=== PATIENT | male | born 1990 | race Caucasian/White ===

== ENCOUNTER 2016-08-14 16:22 | Emergency (ER) | payer OTHER ==
[~2016-08-14] VITALS: Ht 180.3 cm; Wt 61.1 kg
[~2016-08-14 16:22] MED LIST: ACET-1256 PO
[2016-08-14 16:32] VITALS: TEMP 37.4; Ht 180.3 cm; Wt 61.1 kg
--- NOTE | 2016-08-14 17:22 | DIAGNOSTIC IMAGING REPORT ---
PA CHEST WITH LEFT-SIDED RIB SERIES CLINICAL HISTORY: Left-sided chest wall pain. Fall several days ago. FINDINGS: A PA chest radiograph with 4 additional views may left-sided rib series is compared to study dated 05/31/2015. The cardiomediastinal silhouette is unremarkable. The lungs and pleural spaces are clear. No pneumothorax is seen. There is no radiographic evidence of left-sided rib fracture on the rib series. The remainder of the bony thorax is grossly intact. IMPRESSION: 1. No active disease in the chest. 2. There is no radiographic evidence of left-sided rib fracture as clinically queried. Electronically signed by: Tim Zambrano M.D. 08/14/2016 5:21 PM Dictated Date/Time: 08/14/2016 5:20 PM
[2016-08-14] MEDS ORDERED: HYDR-5688 PO (17:36)
--- NOTE | 2016-08-14 17:37 | EMERGENCY ROOM VISIT NOTE ---
ED Visit Note First contact with patient: 16:33 CHIEF COMPLAINT: Left rib injury 5 days ago HISTORY OF PRESENT ILLNESS: Patient is a 26-year-old white male who presents to emergency department for evaluation of left rib pain after a fall 4-5 days ago. He was walking backwards, pulling some brush, when he tripped over a cinder block and fell, landing on his right ribs on another cinder block. He has noted pain in the lateral right ribs since the injury. It was tolerable initially and alleviated with Tylenol, but over the last 2 or 3 days it has gotten much worse. He presently rates his pain an 8/10. He denies noticing any swelling or bruising to the area. He denies any cough or shortness of breath, but does note increased pain with deep breathing, coughing, sneezing or position changes. He denies any back pain, no dysuria, frequency, urgency or hematuria. He denies any abdominal pain, nausea or vomiting. REVIEW OF SYSTEMS: Review of systems as per HPI. All other systems reviewed were negative. At least 6 systems reviewed. PMH: Electronic medical records are reviewed and summarized as above/below. See Problem List. SOCIAL HISTORY: Patient lives at home. Nonsmoker. PHYSICAL EXAM: Vital Signs: Reviewed Nurse's notes. GENERAL: Patient is a thin, well-appearing 26-year-old white male who is awake and alert and in no acute distress. HEENT: Head - normocephalic and atraumatic. Pupils are equal, round, and reactive to light. Extraocular eye muscles are intact and sclera are anicteric. Ears - bilaterally patent canals with no evidence of hemotympanum. Nose - moist nasal mucosa without evidence of trauma or discharge. Mouth - moist buccal mucosa with no trauma to the teeth or signs of malocclusion. Neck: The neck is supple and there is no pain to palpation over the posterior cervical spine and no obvious step-offs or deformities. There is no JVD or tracheal deviation. Chest: There are no signs of deformities, contusions or abrasions to the chest wall. There is no obvious crepitus or paradoxical chest rise. The patient has tenderness to palpation over the inferior left left ribs, in the anterior axillary line. No flail segment is appreciated. Heart: Regular rate, and regular rhythm. Lungs: Breath sounds equal and clear to auscultation. Abdomen: Soft, completely nontender, nondistended, with good bowel sounds. There is no sign of trauma such as contusions, abrasions or penetrations. There are no palpable pulsatile masses or hepatosplenomegaly. There is no guarding, rigidity, or rebound noted. EMERGENCY DEPARTMENT COURSE: Patient was offered, but declined analgesia. X- rays of the ribs were obtained and were negative for acute fracture or pneumothorax. Differential diagnoses entertained include rib fracture, rib contusion, pneumothorax, pulmonary contusion, retroperitoneal bleed, splenic injury, among others. The patient has isolated pain over the inferior ribs. He does not have any abdominal pain. I do not suspect solid organ injury. Supportive care measures were discussed. Patient was encouraged to continue the [id number] medications and was given a prescription for [place] to use for severe pain. PA CHEST WITH LEFT-SIDED RIB SERIES CLINICAL HISTORY: Left-sided chest wall pain. Fall several days ago. FINDINGS: A PA chest radiograph with 4 additional views may left-sided rib series is compared to study dated 05/31/2015. The cardiomediastinal silhouette is unremarkable. The lungs and pleural spaces are clear. No pneumothorax is seen. There is no radiographic evidence of left-sided rib fracture on the rib series. The remainder of the bony thorax is grossly intact. IMPRESSION: 1. No active disease in the chest. 2. There is no radiographic evidence of left-sided rib fracture as clinically queried. Patient was reviewed in the [facility] Prescription Drug Monitoring Program, and there were no prescriptions for controlled substances in the last 12 months. Problem List Medical Problems: (1) Crohn's disease Status: Chronic (2) Hand contusion Status: Resolved (3) Injury of left hand Status: Resolved (4) Numbness of right hand Status: Resolved (5) Right foot pain Status: Resolved (6) Right shoulder pain Status: Resolved (7) Upper back pain Status: Resolved (8) Work related injury Status: Resolved (9) Work related injury Status: Resolved Surgical Problems: (1) History of orthopedic surgery Status: Resolved Current/Historical Medications Scheduled PRN Acetaminophen (Tylenol), 1,000 MG PO Q6 PRN for Pain Hydrocodone/Acetaminophen 5MG/325MG ([place] 5MG/325MG), 1-2 TABLETS PO Q4 PRN for Pain Allergies Coded Allergies: Tramadol (Verified Allergy, Severe, Possible seizure, 05/23/15) Penicillins (Verified Allergy, Intermediate, RASH, 05/23/15) Vital Signs Date Time Temp Pulse Resp B/P Pulse Ox O2 Delivery O2 Flow Rate FiO2 08/14/16 17:50 89 18 128/79 99 08/14/16 16:32 37.4 109 16 131/77 99 Room Air Departure Information Impression Primary Impression: Rib injury Prescriptions Hydrocodone/Acetaminophen 5MG/325MG ([place] 5MG/325MG) Tab 1-2 TABLETS PO Q4 Y for Pain, #25 TAB For Initial Treatment Prov: Yaneth Holley PA 08/14/16 Referrals No Doctor, Assigned (PCP) Patient Instructions My [facility] Additional Instructions Hydrocodone/Acetaminophen ([place]) 5/325 mg: Take 1-2 pills every four hours for breakthrough pain. Avoid alcohol, operating machinery or dangerous equipment, working on ladders or roofs, DRIVING, or situations where being under the influence may be dangerous. It is recommended to use an pqmd-zyg-wsovrft stool softener such as Colace, 100mg twice daily while taking this medication to avoid constipation. Ibuprofen(Motrin, Advil) may be used for fever or pain. Use 600mg every six hours as needed. Take with food. Avoid using more than 2400mg in a 24 hour period. Do not use 2400mg per day for more than three consecutive days without physician direction. Prolonged inappropriate use can lead to stomach upset or ulcers. (AND/OR) Acetaminophen(Tylenol) may be used for fever or pain. Use 1000mg every six hours as needed. Avoid using more than 3000mg in a 24 hour period. Apply ice to ribs for swelling and pain. Do deep breathing and coughing exercises as instructed. Limit activities until ribs heal. Return to the emergency department for worsening pain, shortness of breath, fevers, vomiting, worsening symptoms or as needed. Follow-up family doctor as needed.
[2016-08-14 17:50] VITALS: BP 128/79; PULSE 89; O2SAT 99
== END 2016-08-14 18:09 | disposition home or self-care (01) ==
LOC: C.EDB 16:24
DX: R07.89 Other chest pain (principal); W19.XXXA Unspecified fall, initial encounter; K50.90 Crohn's disease, unspecified, without complications

== ENCOUNTER 2017-04-14 14:16 | Emergency (ER) | payer OTHER ==
[~2017-04-14] VITALS: Ht 180.3 cm; Wt 66.1 kg
[2017-04-14 14:22] VITALS: BP 141/91; TEMP 36.9; Ht 180.3 cm; Wt 66.1 kg
--- NOTE | 2017-04-14 15:12 | DIAGNOSTIC IMAGING REPORT ---
MANDIBLE MIN 4 VIEWS ROUTINE CLINICAL HISTORY: RIGHT TMJ PAIN pain COMPARISON STUDY: None FINDINGS: No acute bony abnormality. Alignment is considered anatomic. IMPRESSION: No acute process. If The patient remains symptomatic, an MRI of the TMJs may be of further assistance. The above report was generated using voice recognition software. It may contain grammatical, syntax or spelling errors. Electronically signed by: Cam Post M.D. 04/14/2017 3:11 PM Dictated Date/Time: 04/14/2017 3:09 PM
[2017-04-14] MEDS ORDERED: HYDR-5688 PO (15:36)
--- NOTE | 2017-04-14 15:37 | EMERGENCY ROOM VISIT NOTE ---
ED Visit Note First contact with patient: 14:31 CHIEF COMPLAINT: Right jaw pain 2 weeks HISTORY OF PRESENT ILLNESS: Patient is a 27-year-old male who presents the emergency department for evaluation of right jaw pain. He has pain at the right TMJ for 2 weeks. He states that the pain was dull initially, and was manageable with swzw-cto-teovhft medications including only dose of Tylenol. About a week ago, he states that he yawned and open his mouth very widely and he felt a snap in his right TMJ, after that the pain became much worse. He has pain when he bites down or when he chews. He has switched to a soft diet. He has not been previously evaluated for this. He reports there left mandible fracture in the past that was treated conservatively. He feels that he bites down, his "teeth do not line up normally." There is no recent trauma or injury that would lean his pain. He states that he has a mild right-sided headache from the jaw pain. He rates his discomfort a 9/10. bite of the teeth does not feel off. REVIEW OF SYSTEMS: Review of systems as per HPI. All other systems reviewed were negative. At least 6 systems reviewed. PMH: Electronic medical records are reviewed and summarized as above/below. See Problem List. SOCIAL HISTORY: Patient lives at home, with his family. Nonsmoker. PHYSICAL EXAM: Vital Signs: Reviewed Nurse's notes. CONSTITUTIONAL: Patient is a well-appearing 27-year-old white male who is awake and alert and in no acute distress. HEENT: Normocephalic, atraumatic. Pupils equal, round, reactive to light and accommodation. EOMs intact without nystagmus. Sclera are anicteric. Tympanic membranes intact, with normal landmarks. External canals are clear. Oral and nasopharynx are clear. Mucous membranes are moist. The patient has tenderness to palpation over the right TMJ. He is able to open the mouth almost fully. There is no malalignment. He does have a click at the right TMJ with range of motion. EMERGENCY DEPARTMENT COURSE: The patient was seen and evaluated as above. He was interested in x-rays, which were performed and were unremarkable. His does persist however he may need more advanced imaging such as an MRI. He was encouraged to continue the anti-inflammatory medicine, and was given a small prescription for [place] to use at night for severe pain. He was advised to follow-up with his primary care provider, as he may need a referral to a maxillofacial surgeon if his eyes are not improving. Medication reconciliation: I attest that I have personally reviewed the patient' s current medication list. Blood pressure screening: Patient was found to have a slightly elevated blood pressure due to circumstances. I do not believe that the patient requires hypertension monitoring. Patient was reviewed in the [facility] Prescription Drug Monitoring Program, and there were no red flags noted. MANDIBLE MIN 4 VIEWS ROUTINE CLINICAL HISTORY: RIGHT TMJ PAIN pain COMPARISON STUDY: None FINDINGS: No acute bony abnormality. Alignment is considered anatomic. IMPRESSION: No acute process. If The patient remains symptomatic, an MRI of the TMJs may be of further assistance. Problem List Medical Problems: (1) Crohn's disease Status: Chronic (2) Hand contusion Status: Resolved (3) Injury of left hand Status: Resolved (4) Numbness of right hand Status: Resolved (5) Rib injury Status: Resolved (6) Right foot pain Status: Resolved (7) Right shoulder pain Status: Resolved (8) Upper back pain Status: Resolved (9) Work related injury Status: Resolved (10) Work related injury Status: Resolved Surgical Problems: (1) History of orthopedic surgery Status: Resolved Current/Historical Medications Scheduled PRN Acetaminophen (Tylenol), 1,000 MG PO Q6H PRN for Pain Hydrocodone/Acetaminophen 5MG/325MG ([place] 5MG/325MG), 1-2 TABLETS PO Q4 PRN for Pain Allergies Coded Allergies: Tramadol (Verified Allergy, Severe, Possible seizure, 05/23/15) Penicillins (Verified Allergy, Intermediate, RASH, 05/23/15) Vital Signs Date Time Temp Pulse Resp B/P (MAP) Pulse Ox O2 Delivery O2 Flow Rate FiO2 04/14/17 15:52 84 16 97 04/14/17 14:22 36.9 97 18 141/91 100 Room Air Departure Information Impression Primary Impression: Temporomandibular joint pain Prescriptions Hydrocodone/Acetaminophen 5MG/325MG ([place] 5MG/325MG) Tab 1-2 TABLETS PO Q4 Y for Pain, #20 TAB For Initial Treatment Prov: Yaneth Holley PA 04/14/17 Referrals Pascual Bazzi M.D. (PCP) Patient Instructions My [facility] Additional Instructions Ibuprofen(Motrin, Advil) may be used for fever or pain. Use 600mg every six hours as needed. Take with food. Avoid using more than 2400mg in a 24 hour period. Do not use 2400mg per day for more than three consecutive days without physician direction. Prolonged inappropriate use can lead to stomach upset or ulcers. (AND/OR) Acetaminophen(Tylenol) may be used for fever or pain. Use 1000mg every six hours as needed. Avoid using more than 4000mg in a 24 hour period. Hydrocodone/Acetaminophen ([place]) 5/325 mg: Take 1-2 pills every four hours for breakthrough pain. Avoid alcohol, operating machinery or dangerous equipment, working on ladders or roofs, DRIVING, or situations where being under the influence may be dangerous. It is recommended to use an qdza-rko-icrpqoj stool softener such as Colace, 100mg twice daily while taking this medication to avoid constipation. Soft foods. Follow-up with your primary care physician if symptoms are not improving. Problem Qualifiers Primary Impression: Temporomandibular joint pain Laterality: right Qualified Codes: M26.621 - Arthralgia of right temporomandibular joint
[2017-04-14 15:52] VITALS: PULSE 84; O2SAT 97
== END 2017-04-14 15:52 | disposition home or self-care (01) ==
LOC: C.EDB 14:18 → C.EDD 15:52
DX: M26.621 Arthralgia of right temporomandibular joint (principal); K50.90 Crohn's disease, unspecified, without complications

== ENCOUNTER 2019-05-09 13:15 | Inpatient (IN) ==
[2019-05-09] MEDS ORDERED: ONDANSETRON INJ 2 MG/ML 2 ML VIAL IV STA ×2 (13:29→14:31)
[2019-05-09] MEDS ORDERED: SODIUM CHLORIDE 0.9% 250 ML IV PRN (13:29)
[2019-05-09] MEDS ORDERED: SODIUM CHLORIDE 0.9% 1000ML 1,000 ML IV SCH (13:30)
--- NOTE | 2019-05-09 13:43 | Emergency Department Note ---
Entered by Valorie Ceja acting as a scribe for Onur Rey MD History of Present Illness General Chief complaint: Vomiting Stated complaint: VOMITING BLOOD Time Seen by Provider: 05/09/19 13:24 Source: patient Mode of arrival: ambulatory Limitations: no limitations History of Present Illness Provider complaint: Vomiting of blood Onset (ago): day(s) 1 Location: abdomen Radiation: non-radiation Severity: moderate Maximum Pain Intensity: 10 Relieved By: + none Exacerbated By: + eating Associated symptoms: + other (Abdominal pain, hematochezia); no fever/chills Treatments prior to arrival: none This is a 29-year-old male with Crohn's disease presenting with hematemesis. He started vomiting 3 days ago. Last night he started seeing coffee grounds and bright red blood. He also noticed bright red blood from his rectum yesterday. He had a normal bowel movement 2 days ago without melena. He does complain of a diffuse abdominal pain. He does have a history of Crohn's but states that he has been in remission and is not on any medications. Previously he was on Remicade. His pain is dissimilar to his prior Crohn's exacerbations and states it feels somewhat different. He does drink alcohol occasionally. He states he is not a heavy drinker. He has been urinating. He denies any fever. He does feel very lightheaded and weak but he did not pass out. He did have chills. He denies any cold symptoms although stated that he had a cold about 2 weeks ago which has since resolved. Home Medications Home Medications Medication Instructions Recorded Confirmed Type No Known Home Medications 05/09/19 05/09/19 History Allergies Allergy/AdvReac Type Severity Reaction Status Date / Time tramadol Allergy Severe Possible Verified 05/09/19 13:49 seizure Penicillins Allergy Intermediate RASH Verified 05/09/19 13:49 Past Med/Surg History Medical History Crohn's disease Surgical History History of shoulder surgery Status post wrist surgery Family History Other No pertinent family history in first degree relatives Social History Preferred Language: Urdu Communication Ability: Effective Hydrochloric Manufacturing Supervisor Required: No Beliefs That Will Affect Care: None Current Living Situation: Other Current Living Situation Comment: [facility] Other Information That Helps Us Care for You: No Feels Safe at Home: Yes Safety Concerns: Feels Safe At This Time Smoking Status: Never smoker Hx Alcohol Use: Yes Alcohol type: beer Hx Substance Use: No Review of Systems See HPI for pertinent positives & negatives. and A total of 10 systems reviewed and were otherwise negative Physical Exam Vital Signs Vital Signs - 24 hr 05/09/19 13:21 05/09/19 13:47 05/09/19 14:03 Temperature 36.9 C Temperature Source Oral Pulse Rate 139 H 115 H Respiratory Rate 20 17 Blood Pressure 84/71 L Blood Pressure Mean 75 Blood Pressure Position Sitting Pulse Oximetry 97 Oxygen Delivery Method Room Air Room Air Sepsis Recent Fever Within 48 Hours No Sepsis New/Unexplained Change in Mental Status No Sepsis Action Taken by Nursing No Action Required 05/09/19 14:13 05/09/19 14:14 05/09/19 14:16 Temperature Temperature Source Pulse Rate 118 H 112 H 107 H Respiratory Rate 20 23 12 Blood Pressure 110/70 Blood Pressure Mean 94 Blood Pressure Position Pulse Oximetry Oxygen Delivery Method Sepsis Recent Fever Within 48 Hours Sepsis New/Unexplained Change in Mental Status Sepsis Action Taken by Nursing 05/09/19 14:30 05/09/19 14:31 05/09/19 14:45 Temperature Temperature Source Pulse Rate 117 H 122 H 110 H Respiratory Rate 19 25 H 21 Blood Pressure 117/90 Blood Pressure Mean 102 Blood Pressure Position Pulse Oximetry Oxygen Delivery Method Sepsis Recent Fever Within 48 Hours Sepsis New/Unexplained Change in Mental Status Sepsis Action Taken by Nursing Constitutional: Vital signs reviewed. Eyes: Pupils are equal round reactive to light. Conjunctiva are noninjected. ENT: Pharynx is clear without erythema or exudate. Mucous membranes are moist. Neck supple without meningeal signs. Respiratory: Clear to auscultation bilaterally. Breath sounds are equal bilaterally. Cardiovascular: Tachycardic. Normal rhythm. No rubs or gallops. GI: Soft, nondistended with diffuse tenderness without rebound. Bowel sounds are present. Musculoskeletal: No peripheral edema. No lower extremity tenderness. Integumentary: No cyanosis. Very pale. Neurological: The patient is awake and alert. No focal deficits. Psychiatric: Normal affect. Not anxious appearing. Course Course 1339: The patient was evaluated in room B3B. A complete history and physical exam was performed. 1357: I reevaluated the patient and he is going to CT. His hemoglobin is 11.9. 1411: I reevaluated the patient and his heart rate is 117. His blood pressure is 110/70. He is feeling better. 1432: I reevaluated the patient and he vomited some more brown material. I ordered more Zofran. I sent it for gastroccult for blood. 1438: I reevaluated the patient and updated him on his test results thus far. 1448: I discussed the patient's case with Dr. Tang. He recommends admitting the patient and he will be on consult. 1453: I reevaluated the patient and updated him on his test results. I discussed the treatment plan with him. He verbally agrees and understands. 1456: I discussed the patient's case with Dr. Garcia- [facility] Hospitalist. He will evaluate the patient for further management. 1537: I reevaluated the patient and his vital signs are stable. He is still tachycardic. Dr. Garcia is interviewing the patient. I requested the nurse to draw a second H&H. Administered Medications Pantoprazole Sodium 40 mg/ (Dextrose) 100 mls @ 20 mls/hr IV Q5H [facility] Stop: 05/09/19 18:59 Last Admin: 05/09/19 13:56 Dose: 20 mls/hr Documented by: [id number] Ondansetron HCl (Zofran) 4 mg IV Q6H PRN PRN Reason: Nausea Stop: 06/08/19 16:25 Last Admin: 05/09/19 17:02 Dose: 4 mg Documented by: [id number] Discontinued Medications Acetaminophen (Tylenol) Confirm Administered Dose 650 mg .ROUTE .STK-MED ONE Stop: 05/09/19 16:29 Last Admin: 05/09/19 16:45 Dose: 650 mg Documented by: [id number] Sodium Chloride (Nss 1000ml) 1,000 mls @ 999 mls/hr IV .Q1H1M SANDY Stop: 05/09/19 14:30 Last Infusion: 05/09/19 17:28 Dose: 0 mls/hr Documented by: [id number] Admin: 05/09/19 13:40 Dose: 999 mls/hr Documented by: [id number] Pantoprazole Sodium 80 mg/ (Dextrose) 120 mls @ 480 mls/hr IV NOW ONE Stop: 05/09/19 13:59 Last Infusion: 05/09/19 14:18 Dose: 0 mls/hr Documented by: [id number] Admin: 05/09/19 13:55 Dose: 480 mls/hr Documented by: [id number] Ondansetron HCl (Zofran) 4 mg IV NOW STA Stop: 05/09/19 13:30 Last Admin: 05/09/19 13:40 Dose: 4 mg Documented by: [id number] Ondansetron HCl (Zofran) 4 mg IV NOW STA Stop: 05/09/19 14:32 Last Admin: 05/09/19 14:40 Dose: 4 mg Documented by: [id number] Critical Care Time Critical Care Time: Yes Total Critical Care Time: 40 I have personally spent 40 minutes of critical care time in the direct management of this patient. This includes bedside care, interpretation of diagnostic studies, and testing, discussion with consultants, patient, and family members, and other required patient management activities. This 40 minutes is in excess of all separately billable procedures. Medical Decision Making Differential Diagnosis Differential diagnoses include upper GI bleed, peptic ulcer disease, bowel perforation, anemia, crohn's disease exacerbation. Medical Records Attestation: I reviewed the patient's medical records. I did perform a limited focused review of portions of the patient's old chart on the electronic medical record. The patient has had no recent pertinent visits to this hospital. Home Medications Current Medication List: was personally reviewed by me Laboratory Data Attestation: I reviewed the patient's lab results. Result diagrams: 05/09/19 15:41 05/09/19 13:33 Lab Results 05/09/19 05/09/19 05/09/19 Range/Units 13:33 13:33 13:33 WBC 29.09 H (4.8-10.8) K/uL RBC 3.74 L (4.7-6.1) M/uL Hgb 11.9 L (14.0-18.0) g/dL Hct 35.9 L (42-52) % MCV 96.0 (80-100) fL MCH 31.8 (25-34) pg MCHC 33.1 (32-36) g/dL RDW Std Deviation 45.4 (36.4-46.3) fL RDW Coeff of Pavan 13.0 (11.5-14.5) % Plt Count 482 H (130-400) K/uL MPV 10.9 H (7.4-10.4) fL Immature Gran % (Auto) 0.4 % Neut % (Auto) 88.5 % Lymph % (Auto) 6.5 % [place] % (Auto) 4.2 % Eos % (Auto) 0.3 % Baso % (Auto) 0.1 % Immature Gran # (Auto) 0.12 H (0.00-0.02) K/uL Neut # (Auto) 25.75 H (1.4-6.5) K/uL Lymph # (Auto) 1.89 (1.2-3.4) K/uL [place] # (Auto) 1.22 H (0.11-0.59) K/uL Eos # (Auto) 0.08 (0-0.5) K/uL Baso # (Auto) 0.03 (0-0.2) K/uL Sodium 138 (136-145) mmol/L Potassium 4.1 (3.5-5.1) mmol/L Chloride 105 (98-107) mmol/L Carbon Dioxide 22 (21-32) mmol/L Anion Gap 11.0 (3-11) BUN 48 H (7-18) mg/dl Creatinine 1.19 (0.6-1.4) mg/dl Est Cr Clr Drug Dosing 79.8 ml/min Est GFR ( Amer) 93.8 Est GFR (Non-Af Amer) 80.9 BUN/Creatinine Ratio 40.1 H (10-20) Glucose 219 H (70-99) mg/dl Estimat Average Glucose mg/dl Hemoglobin A1c (4.5-5.6) % Calcium 9.0 (8.5-10.1) mg/dl Total Bilirubin 1.0 (0.2-1) mg/dl AST 6 L (15-37) U/L ALT 15 (12-78) U/L Alkaline Phosphatase 52 (45-117) U/L Total Protein 7.0 (6.4-8.2) gm/dl Albumin 3.8 (3.4-5.0) gm/dl Globulin 3.2 (2.5-4.0) gm/dl Albumin/Globulin Ratio 1.2 (0.9-2) Lipase 44 L (73-393) U/L Gastric Fluid pH Gastric Occult Blood (Negative) Influenza Type A (PCR) (Neg) Influenza Type B (PCR) (Neg) Blood Type A Positive Antibody Screen NEGATIVE Crossmatch See Detail 05/09/19 05/09/19 05/09/19 Range/Units 13:33 14:18 14:37 WBC (4.8-10.8) K/uL RBC (4.7-6.1) M/uL Hgb (14.0-18.0) g/dL Hct (42-52) % MCV (80-100) fL MCH (25-34) pg MCHC (32-36) g/dL RDW Std Deviation (36.4-46.3) fL RDW Coeff of Pavan (11.5-14.5) % Plt Count (130-400) K/uL MPV (7.4-10.4) fL Immature Gran % (Auto) % Neut % (Auto) % Lymph % (Auto) % [place] % (Auto) % Eos % (Auto) % Baso % (Auto) % Immature Gran # (Auto) (0.00-0.02) K/uL Neut # (Auto) (1.4-6.5) K/uL Lymph # (Auto) (1.2-3.4) K/uL [place] # (Auto) (0.11-0.59) K/uL Eos # (Auto) (0-0.5) K/uL Baso # (Auto) (0-0.2) K/uL Sodium (136-145) mmol/L Potassium (3.5-5.1) mmol/L Chloride (98-107) mmol/L Carbon Dioxide (21-32) mmol/L Anion Gap (3-11) BUN (7-18) mg/dl Creatinine (0.6-1.4) mg/dl Est Cr Clr Drug Dosing ml/min Est GFR ( Amer) Est GFR (Non-Af Amer) BUN/Creatinine Ratio (10-20) Glucose (70-99) mg/dl Estimat Average Glucose 97 mg/dl Hemoglobin A1c 5.0 (4.5-5.6) % Calcium (8.5-10.1) mg/dl Total Bilirubin (0.2-1) mg/dl AST (15-37) U/L ALT (12-78) U/L Alkaline Phosphatase (45-117) U/L Total Protein (6.4-8.2) gm/dl Albumin (3.4-5.0) gm/dl Globulin (2.5-4.0) gm/dl Albumin/Globulin Ratio (0.9-2) Lipase (73-393) U/L Gastric Fluid pH 5-7 Gastric Occult Blood Positive A (Negative) Influenza Type A (PCR) Neg for Influ A (Neg) Influenza Type B (PCR) Neg for Influ B (Neg) Blood Type Antibody Screen Crossmatch Imaging Data Radiologist's Impression: Radiology results as stated below per my review and the radiologist's interpretation: CT abd pelvis wo con CLINICAL HISTORY: 29 years-old Male presenting with hematemasis/crohns eval for free air, vomiting for 3 days. TECHNIQUE: Multidetector CT of the abdomen and pelvis was performed without the use of intravenous contrast. IV contrast: None. One or more dose lowering techniques were used consistent with the principles of ALARA (as low as reasona shell achievable), including automatic exposure control, mA or kV adjustment to individual patient size, and/or use of iterative reconstruction. COMPARISON: 07/16/2007. CT DOSE (mGy.cm): The estimated cumulative dose is 452.07 mGycm. FINDINGS: Property Site Manager topogram: Unremarkable. Lung bases: Normal heart size. No pericardial or pleural effusion. No focal infiltrate or nodule at the lung bases. Liver: Normal morphology. Normal density. Biliary: No gross biliary ductal dilatation allowing for noncontrast technique. Normal gallbladder. Pancreas: Normal noncontrast appearance. Spleen: Normal noncontrast appearance. Adrenal glands: Normal noncontrast appearance. Kidneys and ureters: Bilateral nonobstructing nephrolithiasis, the largest calculus on the left measuring 5 mm. Otherwise normal noncontrast appearance of the renal parenchyma. No hydronephrosis. Ureters nondistended. Bladder: Circumferential bladder wall thickening. Pelvic organs: Normal noncontrast appearance. Bowel: Intramural fat deposition noted throughout the colon largely sparing the sigmoid and rectum. No pericolonic inflammatory change. The appendix is normal. No bowel obstruction. Peritoneal cavity: No free fluid or intraperitoneal gas. Lymph nodes: No gross lymphadenopathy allowing for noncontrast technique. Vasculature: Normal noncontrast appearance. Abdominal wall: Small fat-containing umbilical hernia. Musculoskeletal: Normal. IMPRESSION: 1. Bladder wall thickening may be due to underdistention or cystitis. Correlate with urinalysis. 2. Intramural fat deposition throughout the majority of the colon likely relates to chronic inflammation and setting of Crohn's colitis. No current evidence to suggest active disease in the small or large bowel. 3. No pneumoperitoneum. ACT 112: Negative or not required by law. Electronically signed by: Bobby Pedersen M.D. 05/09/2019 2:18 PM Blood Pressure Blood Pressure Findings: Low blood pressure Blood Pressure Disposition: further management by hospitalist ROLA Boyle The patient was brought by wheelchair to room B3. I did immediately evaluate the patient as noted above. IV access was established. The patient was placed on a continuous electronic device monitor. He is hypotensive and tachycardic. Cardiac monitoring: Indication: Tachycardia and hypotension in setting of GI bleed Rate and rhythm: Sinus tachycardia and normal sinus rhythm I did treat the patient with a liter normal saline IV as the patient is hypot ensive and tachycardic. He was also started on a Protonix drip with a bolus because of presumed GI bleed with a history of hematemesis and hematochezia. I also treated him with Zofran IV. A type and cross was obtained as well as informed consent for blood transfusion should it become necessary. I did order and review the patient's blood work as noted in the electronic medical record. Hemoglobin is 11.9. His white count is severely elevated at 29,000. Electrolytes, LFTs and lipase are unremarkable. I did order a stat CT of the abdomen and pelvis. I did review the images myself as well as the radiology report as described above. There is no evidence of visceral rupture or free air. He has chronic changes consistent with Crohn's disease without signs of acute exacerbation. I did reassess the patient. He is feeling much better. His blood pressure is improved and he is less tachycardic. I did discuss the test results with him. I did recommend hospitalization. He did throw up again. It appeared to be coffee grounds. He was sent to the lab for gastric occult testing it which was positive. He was given additional Zofran IV. I did discuss the case with Dr. Rothman of gastroenterology. He agreed with my management at this time and plan for admission. He will see him in the hospital. I did discuss the case with the hospitalist and transplant case manager. A repeat hemoglobin was obtained and this was 10.7. Part of this drop may be secondary to hemodilution. There is not currently an indication for emergent transfusion at this time. He will continue to be closely monitored. Impression & Plan Upper gastrointestinal bleed, Symptomatic anemia, Abdominal pain, generalized, Hematemesis, Crohn's disease Discharge Plan Visit Data *Final* Discharge Date/Time: 05/09/19 15:50 Chief Complaint: Vomiting Stated Complaint: VOMITING BLOOD ED Provider: Onur Rey Discharge Problem: Upper gastrointestinal bleed, Symptomatic anemia, Abdominal pain, generalized, Hematemesis, Crohn's disease Patient Disposition: Being Evaluated by Hospitalist Discharge Instructions Interventions: ED Discharge Assessment Last Done: 05/09/19 15:50 Discharge Problem: Hematemesis Qualifiers: Nausea presence: unspecified Qualified Code(s): K92.0 - Hematemesis Crohn's disease Qualifiers: Gastrointestinal tract location: unspecified location Digestive disease complication type: unspecified complication Qualified Code(s): K50.919 - Crohn's disease, unspecified, with unspecified complications The sharifiblivia's documentation has been prepared under my direction and personally reviewed by me in its entirety. I confirm that the note above accurately reflects all work, treatment, procedures, and medical decision making performed by me.
[2019-05-09] MEDS ORDERED: PANTOprazole 80 MG in DEXTROSE 5% 100 ML IV ONE (13:45)
[2019-05-09 13:47] LABS: Hematocrit (blood only) 35.9 % (42-52); Hemoglobin 11.9 g/dL (14.0-18.0); Mean Corpuscular Hemoglobin 31.8 pg (25-34); Mean Corpuscular Hgb Conc 33.1 g/dL (32-36); Mean Platelet Volume 10.9 fL (7.4-10.4); Platelet Count 482 K/uL (130-400); RDW Standard Deviation 45.4 fL (36.4-46.3); Red Blood Count 3.74 M/uL (4.7-6.1); White Blood Count 29.09 K/uL (4.8-10.8)
[2019-05-09] MEDS ORDERED: PANTOprazole 40 MG in DEXTROSE 5% 100 ML IV SCH (14:00)
[2019-05-09 14:05] LABS: Albumin Level 3.8 gm/dl (3.4-5.0); BUN Creatinine Ratio 40.1 (10-20); Creatinine Clr Calc Pharmacy 79.8 ml/min; Est GFR (African American) 93.8; Est GFR (Non-African American) 80.9; Potassium 4.1 mmol/L (3.5-5.1)
[2019-05-09 14:07] LABS: Albumin Globulin Ratio 1.2 (0.9-2); Globulin 3.2 gm/dl (2.5-4.0)
[2019-05-09 14:09] LABS: Basophils # (auto) 0.03 K/uL (0-0.2); Basophils % (auto) 0.1 %; Eosinophils # (auto) 0.08 K/uL (0-0.5); Eosinophils % (auto) 0.3 %; Immature Granulocytes # (auto) 0.12 K/uL (0.00-0.02); Immature Granulocytes % (auto) 0.4 %; Lymphocytes # (auto) 1.89 K/uL (1.2-3.4); Lymphocytes % (auto) 6.5 %; Monocytes # (auto) 1.22 K/uL (0.11-0.59); Monocytes % (auto) 4.2 %; Neutrophils # (auto) 25.75 K/uL (1.4-6.5); Neutrophils % (auto) 88.5 %
--- NOTE | 2019-05-09 14:19 | CT Scan Report ---
CT abd pelvis wo con CLINICAL HISTORY: 29 years-old Male presenting with hematemasis/crohns eval for free air, vomiting fo r 3 days. TECHNIQUE: Multidetector CT of the abdomen and pelvis was performed without the use of intravenous co ntrast. IV contrast: None. One or more dose lowering techniques were used consistent with the princip les of ALARA (as low as reasonably achievable), including automatic exposure control, mA or kV adjust ment to individual patient size, and/or use of iterative reconstruction. COMPARISON: 07/16/2007. CT DOSE (mGy.cm): The estimated cumulative dose is 452.07 mGycm. 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 Lung bases: Normal heart size. No pericardial or pleural effusion. No focal infiltrate or nodule at t he lung bases. Liver: Normal morphology. Normal density. Biliary: No gross biliary ductal dilatation allowing for noncontrast technique. Normal gallbladder. Pancreas: Normal noncontrast appearance. Spleen: Normal noncontrast appearance. Adrenal glands: Normal noncontrast appearance. Kidneys and ureters: Bilateral nonobstructing nephrolithiasis, the largest calculus on the left measu ring 5 mm. Otherwise normal noncontrast appearance of the renal parenchyma. No hydronephrosis. Ureter s nondistended. Bladder: Circumferential bladder wall thickening. Pelvic organs: Normal noncontrast appearance. Bowel: Intramural fat deposition noted throughout the colon largely sparing the sigmoid and rectum. N o pericolonic inflammatory change. The appendix is normal. No bowel obstruction. Peritoneal cavity: No free fluid or intraperitoneal gas. Lymph nodes: No gross lymphadenopathy allowing for noncontrast technique. Vasculature: Normal noncontrast appearance. Abdominal wall: Small fat-containing umbilical hernia. Musculoskeletal: Normal. IMPRESSION: 1. Bladder wall thickening may be due to underdistention or cystitis. Correlate with urinalysis. 2. Intramural fat deposition throughout the majority of the colon likely relates to chronic inflamma tion and setting of Crohn's colitis. No current evidence to suggest active disease in the small or la rge bowel. 3. No pneumoperitoneum. ACT 112: Negative or not required by law. Electronically signed by: Bobby Pedersen M.D. 05/09/2019 2:18 PM
[2019-05-09 14:43] LABS: Estimated Average Glucose 97 mg/dl
[2019-05-09 14:51] LABS: Gastric Occult Blood Positive (Negative)
[2019-05-09 14:54] LABS: Influenza A virus by PCR Neg for Influ A (Neg); Influenza B virus by PCR Neg for Influ B (Neg)
--- NOTE | 2019-05-09 15:37 | History & Physical Report ---
Date of Service May 09, 2019 Assessment & Plan (1) Upper gastrointestinal bleed: Coffee ground emesis. Hgb stable. NPO. Serial H&H. Type and crossed 2 units in ER. Consult GI - ER already discussed with Dr Rothman (2) Hematemesis: Ondansetron 4mg IV PRN for nausea Phenergan if ondansetron not effective (3) Abdominal pain: Referred pain to RUQ/right chest ?muscular related to vomiting vs. crohn's (although no active flare noted on CT) (4) Crohn's disease: No active flare on CT. Inflammatory markers in AM. (5) Right-sided chest pain: Rib XR (possibly contusion/fracture related to vomiting). History of Present Illness Chief Complaint: Hematemesis Primary Care Provider: Pascual Bazzi MD Alex Porras is a 29 year old male who presents to the ER due to chills, diaphoresis, vomiting, abdominal pain, hematemesis and bright red blood from his rectum. He has a known history of crohn's under Dr Rothman. His symptoms started with nausea and reduced appetite for the last few days. Vomiting started yesterday then turned into hematemesis with coffee ground vomiting with chills episode started last night. Fever and chills now resolved but he started with a bdominal/right sided rib pain on palpation today, worse with vomiting. He denies any recent NSAID use. He reports his Crohn's was diagnosed around 11 years ago. He gets the occasional stomach cramps which last for hours at the most but otherwise has been well controlled off maintenance medication for the past 5 years. Prior to this he was on Remicade. Allergies Allergy/AdvReac Type Severity Reaction Status Date / Time tramadol Allergy Severe Possible Verified 05/09/19 13:49 seizure Penicillins Allergy Intermediate RASH Verified 05/09/19 13:49 Home Medications Home Medications Medication Instructions Recorded Confirmed Type No Known Home Medications 05/09/19 05/09/19 History Past Med/Surg History Medical History Crohn's disease Surgical History History of shoulder surgery Status post wrist surgery Family History Other No pertinent family history in first degree relatives Social History Preferred Language: Malay Communication Ability: Effective Soap Grinder Required: No Beliefs That Will Affect Care: None Current Living Situation: Other Current Living Situation Comment: [place] Other Information That Helps Us Care for You: No Feels Safe at Home: Yes Safety Concerns: Feels Safe At This Time Smoking Status: Never smoker Hx Alcohol Use: Yes Alcohol type: beer Hx Substance Use: No Review of Systems Review of Systems: All systems reviewed & are unremarkable except as noted in HPI & below Constitutional: + chills and + sweats Gastrointestinal: + abdominal pain, + nausea and + coffee ground emesis Physical Exam Constitutional: well developed, well nourished and + acute distress (feeling nauseous) Eyes: + anicteric sclerae; normal pupil size ENMT: external ear and nose normal, oropharynx normal (pale appearing) Respiratory: normal respiratory effort, lungs clear to auscultation Cardiovascular: Rate/Rhythm: regular rhythm and + tachycardic Heart Sounds: no murmur Vessels: no JVD Extremities: normal capillary refill; no calf tenderness and no pedal edema Gastrointestinal (Abdomen): Inspection/Auscultation: normal bowel sounds; abdomen not distended Percussion/Palpation: + abdomen tender (throughout but causing RUQ pain) and abdomen soft; no guarding and abdomen not rigid Musculoskeletal: no cyanosis or clubbing, extremities motor strength 5/5 Skin: no rashes, warm and dry Neurologic: moves all extremities and awake; no focal motor deficits and not confused Speech / Cognition: normal speech Motor/Sensory: no tremor and no pronator drift Psychiatric: A+Ox3, euthymic affect Lymphatic: no cervical or axillary lymphadenopathy Results & Data Vital Signs (Past 12 Hours) Vital Signs Temp Pulse Resp BP Pulse Ox 05/09/19 13:21 36.9 C 139 H 20 84/[address] abd pelvis wo con IMPRESSION: 1. Bladder wall thickening may be due to underdistention or cystitis. Correlate with urinalysis. 2. Intramural fat deposition throughout the majority of the colon likely relates to chronic inflammation and setting of Crohn's colitis. No current evidence to suggest active disease in the small or large bowel. 3. No pneumoperitoneum. Medications Administered ER meds: NSS 1000 ml bolus Ondansetron 4mg IV x2 Pantoprazole IV drip with bolus Code Status & VTE Plan Code Status Full VTE Prophylaxis Plan VTE Prophylaxis will be ordered: No Reason for no VTE drug order: Contraindicated Reason for no VTE mechanical prophylaxis: Treatment not indicated PG Care Time/CCT Total # of Minutes Spent Total Time Spent with Patient: Total time spent is greater than 50% in coordination of care (as documented) at patient's floor/unit and/or counseling patient: Coding Level of Care Code 31590 Initial Inpt Care Lvl 3 Diagnoses Upper gastrointestinal bleed K92.2 Hematemesis K92.0 Nausea presence: unspecified Abdominal pain R10.84 Abdominal location: generalized Crohn's disease K50.919 Digestive disease complication type: unspecified complication Gastrointestinal tract location: unspecified location Right-sided chest pain R07.9 (1) Abdominal pain Abdominal location: generalized Qualified Code(s): R10.84 - Generalized abdominal pain (2) Hematemesis Nausea presence: unspecified Qualified Code(s): K92.0 - Hematemesis (3) Crohn's disease Digestive disease complication type: unspecified complication Gastrointestinal tract location: unspecified location Qualified Code(s): K50.919 - Crohn's disease, unspecified, with unspecified complications
[2019-05-09 15:50] LABS: Hematocrit (blood only) 31.8 % (42-52); Hemoglobin 10.7 g/dL (14.0-18.0)
[2019-05-09] MEDS ORDERED: ACETAMINOPHEN 325 MG TAB PO PRN (16:26)
[2019-05-09] MEDS ORDERED: ONDANSETRON INJ 2 MG/ML 2 ML VIAL IV PRN (16:26)
[2019-05-09] MEDS ORDERED: ACETAMINOPHEN 325 MG TAB ONE (16:28)
--- NOTE | 2019-05-09 17:06 | Gastrointestinal Consultation ---
Date of Consultation May 09, 2019 Assessment & Plan (1) Crohn's disease: Currently off therapy, as he was non-compliant with followup Will need colonoscopy to evaluate for disease activity. Continue current therapy and supportive care. (2) Hematemesis: Continue Protonix 8 mg/hr gtt at this time Will need EGD Continue supportive care (3) Abdominal pain: May be related to hyperglycemia versus questionable cystitis. UA is pending History of Present Illness Reason for Consultation: Crohn's Disease, Coffee Ground emesis Attending Physician: Reginald Garcia MD History of Present Illness Alex Porras is a 29 yo CM who was diagnosed with severe Crohn's disease involving the terminal ileum and Right colon in 2007, by Dr. Melvin. He was subsequently placed on 6-MP and Remicade, and did quite well, with significant improvement in both symptoms and endoscopic appearance. He was last seen in our office by Nuzhat Rogers in 2015, and remained on therapy at that time, and was doing quite well. He presented to the ER today with complaints of abdominal pain and a two day history of hematemesis and melena. He was noted in the ER to have a significantly elevated WBC count, as well as a random glucose of > 200 as per the ER physician. His H/H was 11.9 and 48, which did decrease to 10.7 and 31.8 on repeat testing following IV hydration. A CT scan in the ER showed questionable cystitis, intramural fat deposition throughout the majority of the colon, but no obvious active Crohn's disease. He was started on a Protonix gtt at 8 mg/hr following a bolus of 80 mg IV x1. At the time I saw the patient he states that his pain has improved in the epigastric area, however, it remains at 5/10 in intensity, and radiates into his right ribcage. He denies any alleviating factors at present. He does have an improvement in his nausea as well, and has not had any vomiting since an episode in the ER. I attempted to discuss the reasons for his stopping Crohn's therapy, at which point he told me he is not here about Crohn's, and if I am going to lecture him he will sign out of the hospital. I informed him that his reported hematemesis may be related to Crohn's disease. He denies any jaundice, acholic stools, dark urine, pruritus or fatigue. He has no further complaints. Allergies Allergy/AdvReac Type Severity Reaction Status Date / Time tramadol Allergy Severe Possible Verified 05/09/19 13:49 seizure Penicillins Allergy Intermediate RASH Verified 05/09/19 13:49 Home Medications Home Medications Medication Instructions Recorded Confirmed Type No Known Home Medications 05/09/19 05/09/19 History Patient History Medical History Crohn's disease Surgical History History of shoulder surgery Status post wrist surgery Family History Other No pertinent family history in first degree relatives Social History Preferred Language: Citizen Of [place] Communication Ability: Effective Manager [employer] Required: No Beliefs That Will Affect Care: None Current Living Situation: Other Current Living Situation Comment: ROOM[place] Other Information That Helps Us Care for You: No Feels Safe at Home: Yes Safety Concerns: Feels Safe At This Time Smoking Status: Never smoker Hx Alcohol Use: Yes Alcohol type: beer Hx Substance Use: No Review of Systems Review of Systems: All systems reviewed & are unremarkable except as noted in HPI & below Physical Exam Constitutional: WD/WN, vitals as above Eyes: PERRL, conjunctivae normal, anicteric sclerae ENMT: external ear and nose normal, oropharynx normal Neck: trachea midline, no thyromegaly Respiratory: normal respiratory effort, lungs clear to auscultation Cardiovascular: RRR, no murmur, no edema Gastrointestinal (Abdomen): Inspection/Auscultation: normal bowel sounds; abdomen not distended Percussion/Palpation: + abdomen tender and abdomen soft Skin: no rashes, warm and dry Psychiatric: A+Ox3, euthymic affect Lymphatic: no cervical or axillary lymphadenopathy Results & Data Vital Signs (Past 12 Hours) Vital Signs Temp Pulse Resp BP Pulse Ox 05/09/19 16:16 106 H 05/09/19 15:50 113/71 05/09/19 15:45 109 H 25 H 05/09/19 15:30 105 H 28 H 05/09/19 15:15 109 H 18 05/09/19 15:02 125 H 20 05/09/19 14:45 110 H 21 05/09/19 14:31 122 H 25 H 117/90 05/09/19 14:30 117 H 19 05/09/19 14:16 107 H 12 05/09/19 14:14 112 H 23 110/70 05/09/19 14:13 118 H 20 05/09/19 13:47 115 H 17 05/09/19 13:21 36.9 C 139 H 20 84/71 L 97 PG Care Time/CCT Total # of Minutes Spent Total Time Spent with Patient: Total time spent is greater than 50% in coordination of care (as documented) at patient's floor/unit and/or counseling patient: Coding Level of Care Code 60039 Inpt Consult Level 4 Diagnoses Crohn's disease K50.919 Digestive disease complication type: unspecified complication Gastrointestinal tract location: unspecified location Hematemesis K92.0 Nausea presence: unspecified Abdominal pain R10.9 (1) Crohn's disease Digestive disease complication type: unspecified complication Gastrointestinal tract location: unspecified location Qualified Code(s): K50.919 - Crohn's disease, unspecified, with unspecified complications (2) Hematemesis Nausea presence: unspecified Qualified Code(s): K92.0 - Hematemesis
--- NOTE | 2019-05-09 17:24 | XRay Report ---
PA CHEST WITH RIGHT-SIDED RIB SERIES CLINICAL HISTORY: Fall several days ago. Left-sided chest wall pain. FINDINGS: 2 PA chest radiograph with 5 additional views from a right-sided rib series are compared to study dated 08/14/2016. The cardiomediastinal silhouette is unremarkable. An accessory azygous fissur e is incidentally noted. The lungs and pleural spaces are clear. No pneumothorax is seen. There is no radiographic evidence of acute/distracted right-sided rib fracture on the rib series. The remainder of the bony thorax is grossly intact. IMPRESSION: 1. The lungs are clear. 2. There is no radiographic evidence of acute/distracted right-sided rib fracture. ACT 112: Negative or not required by law. Electronically signed by: Tim Zambrano M.D. 05/09/2019 5:22 PM
[2019-05-09] MEDS ORDERED: SODIUM CHLORIDE 0.9% 1000ML 1,000 ML IV ONE (18:17)
[2019-05-09] MEDS ORDERED: PROMETHAZINE HCL 25 MG in SODIUM CHLORIDE 0.9% 50 ML IV PRN (18:17)
[2019-05-09] MEDS: PANTOprazole 40 MG in DEXTROSE 5% 100 ML IV SCH (19:49)
[2019-05-09] MEDS: LACTATED RINGER'S 1,000 ML IV SCH (19:50)
[2019-05-10] MEDS ORDERED: DEXTROSE 50% 50 ML SYRINGE IV PRN (01:01)
[2019-05-10] MEDS ORDERED: GLUCOSE 10 TABS/TUBE PO PRN (01:01)
[2019-05-10] MEDS ORDERED: CARBOHYDRATES FOR HYPOGLYCEMIA PO PRN (01:01)
[2019-05-10] MEDS ORDERED: GLUCAGON FOR INJ 1 MG VIAL SQ PRN (01:01)
[2019-05-10] MEDS ORDERED: GLUCOSE 40% GEL 15 GM TUBE PO PRN (01:01)
[2019-05-10 01:41] LABS: Hematocrit (blood only) 23.7 % (42-52); Hemoglobin 8.1 g/dL (14.0-18.0)
[2019-05-10] MEDS ORDERED: SODIUM CHLORIDE 0.9% 250 ML IV PRN ×2 (01:44→01:47)
[2019-05-10 01:55] LABS: Appearance Urine Clear (Clear); Bilirubin Urine Negative (Negative); Blood Urine Negative (Negative); Color Urine Yellow; Glucose Urine UA Negative (Negative); Ketones Urine 2+ (Negative); Leukocyte Esterase Urine Negative (Negative); Nitrite Urine Negative (Negative); Protein Urine Negative (Negative); Specific Gravity Urine 1.032 (1.000-1.030); Urobilinogen Urine Negative (Negative)
[2019-05-10] MEDS: PANTOprazole 40 MG in DEXTROSE 5% 100 ML IV SCH ×5 (02:39→22:15)
[2019-05-10] MEDS: LACTATED RINGER'S 1,000 ML IV SCH ×4 (04:27→23:31)
[2019-05-10 06:43] LABS: Basophils # (auto) 0.02 K/uL (0-0.2); Basophils % (auto) 0.2 %; Eosinophils # (auto) 0.12 K/uL (0-0.5); Eosinophils % (auto) 1.3 %; Hematocrit (blood only) 27.1 % (42-52); Hemoglobin 9.2 g/dL (14.0-18.0); Immature Granulocytes # (auto) 0.01 K/uL (0.00-0.02); Immature Granulocytes % (auto) 0.1 %; Lymphocytes # (auto) 1.73 K/uL (1.2-3.4); Lymphocytes % (auto) 18.1 %; Mean Corpuscular Hemoglobin 31.5 pg (25-34); Mean Corpuscular Hgb Conc 33.9 g/dL (32-36); Mean Corpuscular Volume 92.8 fL (80-100); Mean Platelet Volume 10.8 fL (7.4-10.4); Monocytes # (auto) 0.84 K/uL (0.11-0.59); Monocytes % (auto) 8.8 %; Neutrophils # (auto) 6.83 K/uL (1.4-6.5); Neutrophils % (auto) 71.5 %; Platelet Count 292 K/uL (130-400); RDW Coefficient of Variation 13.4 % (11.5-14.5); RDW Standard Deviation 45.4 fL (36.4-46.3); Red Blood Count 2.92 M/uL (4.7-6.1); White Blood Count 9.55 K/uL (4.8-10.8)
[2019-05-10 07:17] LABS: Alanine Aminotransferase 13 U/L (12-78); Albumin Globulin Ratio 1.3 (0.9-2); Albumin Level 2.8 gm/dl (3.4-5.0); Alkaline Phosphatase 35 U/L (45-117); Aspartate Aminotransferase 9 U/L (15-37); BUN Creatinine Ratio 30.7 (10-20); Bilirubin,Total 0.7 mg/dl (0.2-1); Blood Urea Nitrogen 23 mg/dl (7-18); C Reactive Protein < 0.29 mg/dl (0-0.29); Carbon Dioxide 24 mmol/L (21-32); Chloride 113 mmol/L (98-107); Creatinine Clr Calc Pharmacy 125.9 ml/min; Est GFR (African American) 140.9; Est GFR (Non-African American) 121.6; Globulin 2.2 gm/dl (2.5-4.0); Glucose 94 mg/dl (70-99); Potassium 3.6 mmol/L (3.5-5.1); Sodium 142 mmol/L (136-145)
[2019-05-10] MEDS ORDERED: INSULIN ASPART 100 UNITS/ML 3 ML PEN SC SCH ×2 (07:30→12:00)
--- NOTE | 2019-05-10 13:20 | Hospitalist Progress Note ---
Date of Service May 10, 2019 Assessment & Plan (1) Upper gastrointestinal bleed: Mr. Alex Porras is a 29 yo male who presented with chills sweating and vomiting, hematemesis and BRBPR. He has a history of crohns. He was given one unit of blood and his Hgb has been stable. He was transitioned to a liquid diet this morning with plan for EGD in the morning. - NPO after midnight - GI consulted with plan for EGD - continue IV protonix for now, consider transitioning to oral after procedure (2) Hematemesis: Ondansetron 4mg IV PRN for nausea Phenergan if ondansetron not effective (3) Abdominal pain: Referred pain to RUQ/right chest most likely muscular related to vomiting since it started during a episode of vomiting and was painful to palpation of the right chest. - will continue to assess for symptoms (4) Crohn's disease: No active flare on CT. Inflammatory markers in AM. (5) Right-sided chest pain: Rib XR (possibly contusion/fracture related to vomiting): no evidence on XR of acute distracted R sided rib fracture. Supervising Physician Co-Signing Physician Notes I personally examined the patient and verified all garcia points of history and exam, discussed case, and agree with decision making with Dr Smiley. feeling far better. no vomiting no bleeding. no lightheaded. d/w GI anticipate EGD tomorrow vitals noted nad mild epigastric tenderness no guarding no rebound. GI bleed w acute blood loss anemia requiring 1 unit PRBC - now stable. protonix. clear liquids. anticipate EGD tomorrow. Subjective Mr. Alex Porras is doing well today, he explains that he has no nausea or vomiting and has not really been weak or dizzy today. He brought up that he has been having some pain in his right chest that he attributes to a pulled muscle. He explained that when he was vomiting constantly he started to feel a sharp pain in his right chest. When anyone presses on his abdomen he feels the pain in his chest. I asked him more about his alcohol use and he states that he may have 4-5 drinks per week, approx. one a day. He has not had any drinks over the last week. Review of Systems Constitutional: no fever, no chills and no weakness Respiratory: no cough denies shortness of breath Cardiovascular: + chest pain; no palpitations Gastrointestinal: no nausea and no vomiting Genitourinary: no dysuria, no difficulty urinating and no urinary frequency Neurologic: no headache(s) Physical Exam Constitutional: WD/WN, vitals as above Eyes: PERRL, conjunctivae normal, anicteric sclerae ENMT: external ear and nose normal, oropharynx normal Neck: normal visual inspection Respiratory: normal respiratory effort, lungs clear to auscultation Cardiovascular: RRR, no murmur, no edema Chest (Breasts): Additional Comments: patient tender to palpation in the right chest. Gastrointestinal (Abdomen): normal bowel sounds, soft, nontender, no hepatosplenomegaly Percussion/Palpation: abdomen nontender, no guarding and abdomen not rigid Skin: no rashes, warm and dry Results & Data ([facility]) Vital Signs (Past 12 Hours) Vital Signs Temp Pulse Pulse Resp BP BP Pulse Ox 05/10/19 11:47 36.7 C 76 16 103/65 99 05/10/19 08:12 36.8 C 80 18 120/77 100 05/10/19 04:24 36.8 C 63 20 100/61 96 05/10/19 04:10 36.9 C 85 20 113/78 99 05/10/19 03:10 36.9 C 86 20 103/64 99 05/10/19 02:40 36.9 C 78 20 102/66 98 05/10/19 02:25 36.9 C 88 18 111/68 99 05/10/19 02:07 36.8 C 94 H 20 115/77 100 Resident Activity Tracking Resident Involvement: Resident Care Provided Care Provided: Adult Hospital Medicine (1) Crohn's disease Digestive disease complication type: unspecified complication Gastrointestinal tract location: unspecified location Qualified Code(s): K50.919 - Crohn's disease, unspecified, with unspecified complications (2) Hematemesis Nausea presence: unspecified Qualified Code(s): K92.0 - Hematemesis (3) Abdominal pain Abdominal location: generalized Qualified Code(s): R10.84 - Generalized abdominal pain
--- NOTE | 2019-05-10 13:44 | Gastroenterology Progress Note ---
Date of Service May 10, 2019 Assessment & Plan (1) Upper gastrointestinal bleed: Continue Protonix gtt at 8 mg/hour Advance to clear liquid diet NPO after midnight Consider EGD in AM if H/H drops Subjective Feeling much better today. Denies lightheadedness, dizziness, fevers, chills, nausea vomiting, diarrhea, hematemesis, melena or hematochezia. Nursing reports no problems at this time. Patient is asking for something to drink. Review of Systems Review of Systems: All systems reviewed & are unremarkable except as noted in HPI & below Physical Exam Constitutional: WD/WN, vitals as above Respiratory: normal respiratory effort, lungs clear to auscultation Cardiovascular: RRR, no murmur, no edema Gastrointestinal (Abdomen): normal bowel sounds, soft, nontender, no hepatosplenomegaly Results & Data Vital Signs (Past 12 Hours) Vital Signs Temp Pulse Pulse Resp BP BP Pulse Ox 05/10/19 11:47 36.7 C 76 16 103/65 99 05/10/19 08:12 36.8 C 80 18 120/77 100 05/10/19 04:24 36.8 C 63 20 100/61 96 05/10/19 04:10 36.9 C 85 20 113/78 99 05/10/19 03:10 36.9 C 86 20 103/64 99 05/10/19 02:40 36.9 C 78 20 102/66 98 05/10/19 02:25 36.9 C 88 18 111/68 99 05/10/19 02:07 36.8 C 94 H 20 115/77 100 PG Care Time/CCT Total # of Minutes Spent Total Time Spent with Patient: Total time spent is greater than 50% in coordination of care (as documented) at patient's floor/unit and/or counseling patient: Coding Level of Care Code 66310 Subseq Hosp Care Lvl 3 Diagnoses Upper gastrointestinal bleed K92.2
--- NOTE | 2019-05-10 16:58 | Billing Data ---
Date of Service May 10, 2019 Coding Level of Care Code 35923 Subseq Hosp Care Lvl 2
[2019-05-11] MEDS: PANTOprazole 40 MG in DEXTROSE 5% 100 ML IV SCH ×2 (03:19→10:23)
[2019-05-11 06:14] LABS: Basophils # (auto) 0.02 K/uL (0-0.2); Basophils % (auto) 0.3 %; Eosinophils % (auto) 3.2 %; Hematocrit (blood only) 25.3 % (42-52); Hemoglobin 8.5 g/dL (14.0-18.0); Immature Granulocytes # (auto) 0.01 K/uL (0.00-0.02); Immature Granulocytes % (auto) 0.2 %; Lymphocytes # (auto) 1.14 K/uL (1.2-3.4); Lymphocytes % (auto) 18.5 %; Mean Corpuscular Hemoglobin 31.3 pg (25-34); Mean Corpuscular Hgb Conc 33.6 g/dL (32-36); Mean Platelet Volume 10.8 fL (7.4-10.4); Monocytes % (auto) 9.7 %; Neutrophils # (auto) 4.19 K/uL (1.4-6.5); Neutrophils % (auto) 68.1 %; Platelet Count 289 K/uL (130-400); RDW Coefficient of Variation 13.6 % (11.5-14.5); RDW Standard Deviation 45.6 fL (36.4-46.3); Red Blood Count 2.72 M/uL (4.7-6.1); White Blood Count 6.16 K/uL (4.8-10.8)
[2019-05-11] MEDS: LACTATED RINGER'S 1,000 ML IV SCH ×2 (06:19→13:44)
[2019-05-11 06:48] LABS: BUN Creatinine Ratio 11.1 (10-20); Calcium 8.3 mg/dl (8.5-10.1); Creatinine Clr Calc Pharmacy 138.7 ml/min; Est GFR (African American) 146.6; Est GFR (Non-African American) 126.5; Potassium 3.7 mmol/L (3.5-5.1)
[2019-05-11] MEDS ORDERED: LIDOCAINE HCL 2% 2 ML VIAL/AMP(20MG/ML) INFIL ONE (07:40)
[2019-05-11] MEDS ORDERED: SUCCINYLCHOLINE CHLORIDE 20 MG/ML 10 ML VIAL ONE (07:40)
[2019-05-11] MEDS ORDERED: PROPOFOL IV EMULSION 10 MG/ML 20 ML VIAL IV ONE (07:41)
[2019-05-11] MEDS ORDERED: fentaNYL citrate 100 MCG/2 ML VIAL ONE ×3 (07:41→08:57)
[2019-05-11] MEDS ORDERED: ONDANSETRON INJ 2 MG/ML 2 ML VIAL ONE (07:41)
--- NOTE | 2019-05-11 08:20 | Anesthesiology Consultation ---
Date of Service May 11, 2019 Assessment & Plan (1) Encounter for pre-operative examination: Chart Review Chart Review: Acceptable Risk for Surgery and Patient NOT seen in Pre Admission Testing Consults Requested none ASA ASA2 Proposed Anesthesia Anesthesia Type: General Risk / Benefits Reviewed With: PT / POA / Parent / Guardian, Accepts Plan and Informed Consent Obtained History Surgery Operation Date: 05/11/19 09:00 Proposed Procedures p Esophagogastroduodenoscopy - Bret G. Case, DO Height/Weight Height: 6 ft Weight: 63.2 kg Allergies Allergy/AdvReac Type Severity Reaction Status Date / Time tramadol Allergy Severe Possible Verified 05/09/19 13:49 seizure Penicillins Allergy Intermediate RASH Verified 05/09/19 13:49 Medications Home Medications Medication Instructions Recorded Confirmed Last Taken No Known Home Medications 05/09/19 05/09/19 Unknown Active Medications Generic Name Dose Route Start Last Admin Trade Name Freq PRN Reason Stop Dose Admin Acetaminophen 650 mg 05/09/19 16:26 05/09/19 20:06 Tylenol PO 06/08/19 16:25 650 mg Q4H PRN Administration Pain or Fever Lactated Ringer's 1,000 mls @ 150 mls/hr 05/09/19 19:18 05/11/19 06:19 Lr IV 06/08/19 19:17 150 mls/hr .Q6H40M SANDY Administration Pantoprazole Sodium 40 mg/ 100 mls @ 20 mls/hr 05/09/19 19:15 05/11/19 03:19 Dextrose IV 05/24/19 00:14 20 mls/hr Q5H SANDY Administration Ondansetron HCl 4 mg 05/09/19 16:26 05/09/19 17:02 Zofran IV 06/08/19 16:25 4 mg Q6H PRN Administration Nausea NPO Date Last Intake of Fluids: 05/11/19 Time Last Intake of Fluids: 00:00 Date Last Intake of Solids: 05/07/19 Time Last Intake of Solids: 17:00 Past Medical History Medical History Crohn's disease Exercise / Class Metabolic Activity II 4-5 Yardwork/Stairs/Walk up hill Negative for chest pain or shortness of breath. no n/v since sunday Past Family History Family History Other No pertinent family history in first degree relatives Past Surgical History Surgical History History of shoulder surgery Status post wrist surgery Past Anesthesia History No Hx of Anesthesia Complications History of PONV No Hx of PONV and No Hx of Motion Sickness Social History Smoking Status: Never smoker Hx Alcohol Use: Yes Alcohol type: beer alcohol intake frequency: a few times a month Hx Substance Use: No Physical Exam Vital Signs Last Vital Signs Temp 37.3 C 05/11/19 07:51 Pulse 78 05/11/19 07:51 Resp 18 05/11/19 07:51 BP 129/70 05/11/19 07:51 Pulse Ox 99 05/11/19 07:51 Constitutional not obese ENMT Mouth: no TMJ abnormality and oral opening not small Thyromental Distance: > or= 3.5 Finger Breadths Mallampati Class: II Neck normal visual inspection; neck extension not limited Respiratory normal respiratory effort Auscultation: lungs clear to auscultation bilaterally Cardiovascular Rate/Rhythm: regular rate and regular rhythm Heart Sounds: no murmur Neurologic moves all extremities Psychiatric Orientation: alert and oriented x 3 Testing Laboratory Results 05/11/19 05:33 05/11/19 05:33 Hemoglobin A1c 5.0 % (4.5-5.6) 05/09/19 13:33 Urine Color Yellow 05/10/19 01:41 Urine Appearance Clear (Clear) 05/10/19 01:41 Urine pH 5.0 (4.5-7.5) 05/10/19 01:41 Ur Specific [place] 1.032 (1.000-1.030) H 05/10/19 01:41 Urine Protein Negative (Negative) 05/10/19 01:41 Urine Glucose (UA) Negative (Negative) 05/10/19 01:41 Urine Ketones 2+ (Negative) H 05/10/19 01:41 Urine Nitrite Negative (Negative) 05/10/19 01:41 Ur Leukocyte Esterase Negative (Negative) 05/10/19 01:41 Blood Type A Positive 05/09/19 13:33 Antibody Screen NEGATIVE 05/09/19 13:33
--- NOTE | 2019-05-11 08:48 | GI REPORT ---
Patient Name: Alex Porras Procedure Date: 05/11/2019 7:48 AM Date of : 1990 Admit Type: Inpatient Age: 29 Gender: Male Attending MD: Bret Rothman DO Procedure: Upper GI endoscopy Providers: Bret Rothman DO Referring MD: Jerson Morales Indications: Hematemesis Medicines: Monitored Anesthesia Care Complications: No immediate complications. Estimated Blood Loss: Estimated blood loss: none. Procedure: Pre-Anesthesia Assessment: - Prior to the procedure, a History and Physical was performed, and patient medications and allergies were reviewed. The patient's tolerance of previous anesthesia was also reviewed. The risks and benefits of the procedure and the sedation options and risks were discussed with the patient. All questions were answered, and informed consent was obtained. Prior Anticoagulants: The patient has taken no previous anticoagulant or antiplatelet agents. ASA Grade Assessment: II - A patient with mild systemic disease. After reviewing the risks and benefits, the patient was deemed in satisfactory condition to undergo the procedure. After obtaining informed consent, the endoscope was passed under direct vision. Throughout the procedure, the patient's blood pressure, pulse, and oxygen saturations were monitored continuously. The Endoscope was introduced through the mouth, and advanced to the second part of duodenum. The upper GI endoscopy was accomplished without difficulty. The patient tolerated the procedure well. Findings: One cratered esophageal ulcer with no bleeding and no stigmata of recent bleeding was found 38 to 39 cm from the incisors. The lesion was 10 mm in largest dimension. Localized mild inflammation characterized by erosions and erythema was found on the greater curvature of the stomach. The examined duodenum was normal. Impression: - Non-bleeding esophageal ulcer. - Gastritis. - Normal examined duodenum. - No specimens collected. Recommendation: - Return patient to hospital [facility] for ongoing care. - Advance diet as tolerated. - Use Protonix (pantoprazole) 40 mg PO BID for 8 weeks. Bret Rothman DO 05/11/2019 8:47:36 AM This report has been signed electronically. Note Initiated On: 05/11/2019 7:48 AM Number of Addenda: 0 I attest to the content of the Intraoperative Record and orders documented therein, exceptions below {[id number]}
[2019-05-11] MEDS: fentaNYL citrate 100 MCG/2 ML VIAL IV PRN ×4 (08:58→09:13)
[2019-05-11] MEDS ORDERED: ATROPINE SULFATE 0.1 MG/ML 10ML SYR IV PRN (09:22)
[2019-05-11] MEDS ORDERED: ePHEDrine sulfate 50 MG/ML AMP IV PRN (09:22)
--- NOTE | 2019-05-11 09:24 | Anesthesiology Progress Note ---
Date of Service May 11, 2019 Anesthesia Post Procedure Vital Signs Vital Signs: Temp Pulse Pulse Pulse Resp BP Pulse Ox 05/11/19 09:20 77 16 126/80 98 05/11/19 09:10 84 16 128/73 98 05/11/19 09:00 36.5 C 80 16 140/82 100 05/11/19 08:51 36.5 C 87 16 99 05/11/19 07:51 37.3 C 78 18 129/70 99 05/10/19 22:57 37 C 91 H 18 105/65 99 05/10/19 17:40 36.8 C 76 116/76 98 05/10/19 15:46 37.0 C 76 17 112/79 100 05/10/19 14:51 88 05/10/19 11:47 36.7 C 76 16 103/65 99 Transfer of Care Handoff Completed per policy Notes Mental Status: alert / awake / arousable and participated in evaluation Patient Amnestic to Procedure: Yes Nausea / Vomiting: adequately controlled Pain: adequately controlled Airway Patency, RR, SpO2: stable & adequate BP & HR: stable & adequate Hydration State: stable & adequate Anesthetic Complications: no major complications apparent and Pt Satisfied with anesthetic care
[2019-05-11] MEDS ORDERED: PANTOprazole 40 MG TAB PO SCH (10:15)
--- NOTE | 2019-05-11 15:57 | Discharge Summary ---
Date of Service May 11, 2019 Admission HPI Per Admitting Provider Alex Porras is a 29 year old male who presents to the ER due to chills, diaphoresis, vomiting, abdominal pain, hematemesis and bright red blood from his rectum. He has a known history of crohn's under Dr Rothman. His symptoms started with nausea and reduced appetite for the last few days. Vomiting started yesterday then turned into hematemesis with coffee ground vomiting with chills episode started last night. Fever and chills now resolved but he started with abdominal/right sided rib pain on palpation today, worse with vomiting. He denies any recent NSAID use. He reports his Crohn's was diagnosed around 11 years ago. He gets the occasional stomach cramps which last for hours at the most but otherwise has been well controlled off maintenance medication for the past 5 years. Prior to this he was on Remicade. Principal Diagnosis UGI bleed from esophageal ulcer acute blood loss anemia requiring 1 unit PRBC transfusion Discharge Exam gen [id number] nad heent nc at mmm breathing unlabored no accessory muscles good effort no pallor or icterus. no focal neuro deficits. Discharge Data Allergies Allergy/AdvReac Type Severity Reaction Status Date / Time tramadol Allergy Severe Possible Verified 05/09/19 13:49 seizure Penicillins Allergy Intermediate RASH Verified 05/09/19 13:49 Consultations 05/09/19 14:50 ED Decision to Admit Stat 05/09/19 16:26 Consult Gastroenterology Routine Procedures Performed Operation Date: 05/11/19 09:00 Actual Procedures p Esophagogastroduodenoscopy - Bret Rothman DO DICTATED BY: Bret Rothman DO Patient Name: Alex Porras Procedure Date: 05/11/2019 7:48 AM Date of : 1990 Admit Type: Inpatient Age: 29 Gender: Male Attending MD: Bret Rothman DO Procedure: Upper GI endoscopy Providers: Bret Rothman DO Referring MD: Jerson Morales Indications: Hematemesis Medicines: Monitored Anesthesia Care Complications: No immediate complications. Estimated Blood Loss: Estimated blood loss: none. Procedure: Pre-Anesthesia Assessment: - Prior to the procedure, a History and Physical was performed, and patient medications and allergies were reviewed. The patient's tolerance of previous anesthesia was also reviewed. The risks and benefits of the procedure and the sedation options and risks were discussed with the patient. All questions were answered, and informed consent was obtained. Prior Anticoagulants: The patient has taken no previous anticoagulant or antiplatelet agents. ASA Grade Assessment: II - A patient with mild systemic disease. After reviewing the risks and benefits, the patient was deemed in satisfactory condition to undergo the procedure. After obtaining informed consent, the endoscope was passed under direct vision. Throughout the procedure, the patient's blood pressure, pulse, and oxygen saturations were monitored continuously. The Endoscope was introduced through the mouth, and advanced to the second part of duodenum. The upper GI endoscopy was accomplished without difficulty. The patient tolerated the procedure well. Findings: One cratered esophageal ulcer with no bleeding and no stigmata of recent bleeding was found 38 to 39 cm from the incisors. The lesion was 10 mm in largest dimension. Localized mild inflammation characterized by erosions and erythema was found on the greater curvature of the stomach. The examined duodenum was normal. Impression: - Non-bleeding esophageal ulcer. - Gastritis. - Normal examined duodenum. - No specimens collected. Recommendation: - Return patient to hospital [facility] for ongoing care. - Advance diet as tolerated. - Use Protonix (pantoprazole) 40 mg PO BID for 8 weeks. Bret Cardoso. Case, DO Ordered Studies 05/09/19 13:29 CT abd pelvis wo con Stat Hospital Course (1) Upper gastrointestinal bleed: esophageal ulcer -- PPI BID for now, outpt follow up. -no NSAIDS or EtOH -acute blood loss anemia required 1 unit transfusion clinically appearing stable now, vitals stable, visible blood loss (very prominently present on admission) now stopped. outpt CBC in f/u to ensure appropriate rise over time (2) Hematemesis: from above n/v now resolved, tolerating regular diet (3) Crohn's disease: No active flare on CT. EGD showing ulceration but not c/w UGI crohns. for outpt f/u and colo in near future. stable for home (4) Right-sided chest pain: seems to be rib/intercostal related and was from vomiting. stable for home. Total Time Total Time Spent Total Time Spent (In Minutes): <30 Discharge Plan Discharge Items Patient Disposition: Home - Self-Care Reason For Visit: VOMITING Discharge Diagnosis: esophageal ulcer Activity: Per Instructions section Non-emergency contact: Primary Care Provider Call non-emergency contact if: your symptoms worsen Follow-up/Referrals: Nitesh Bazzi MD [Primary Care Provider] - Diet: Regular Addtl Attending Provider Instructions: Esophageal Ulcer: An esophageal ulcer is an open sore in the lining of the esophagus. The esophagus is the tube that carries food and liquid from your mouth to your stomach. Esophageal ulcers can be caused by: GERD (gastroesophageal reflux disease or heartburn). This condition occurs when stomach acid flows back into the esophagus. It's the most common cause of esophageal ulcers. Irritants that damage the esophagus. These include cigarette smoke, alcohol, lye, and certain medicines. Certain types of treatments done on the esophagus. These include chemotherapy and radiation. Esophageal ulcer symptoms can include: - Pain when you swallow or trouble swallowing - Pain behind your breastbone (heartburn) - Feeling of food sticking in your throat or not going down right - Upset stomach (nausea) and vomiting - Vomiting blood - Chest pain Treatment may include: - Medicines to reduce the amount of acid your stomach makes, - Quitting smoking and not drinking alcohol. - Not taking irritating medicines such as aspirin, ibuprofen, potassium, tetracyclines, doxycycline, quinidine, iron, and alendronate. - Recovery and follow-up With treatment, an esophageal ulcer takes several weeks or longer to heal. A follow-up endoscopy may be done to check the ulcer's healing. Let your provider know if your symptoms don't get better or if they come back again. If you have GERD, work with your provider to manage it. You can take steps to help keep your esophagus healthy and prevent future problems. Call your provider right away if you have any of the following: - Fever of 100.4F (38.0C) or higher, or as advised by your healthcare provider - Chills - Continued pain or trouble swallowing - Coughing up blood - Frequent nausea or vomiting that looks like bloody coffee grounds - Dark, tarry, or bloody stools Pending Studies at Discharge: Yes Studies:: blood cultures negative at 24 hours Stand-Alone Forms: [employer], Work/School Release (Inpt), Smoking Cessation Medications and DC Order Prescriptions: New pantoprazole [Protonix] 40 mg tablet,delayed release (DR/EC) 40 mg PO BID 30 Days Qty: 60 RF: 0 No Action No Known Home Medications RF: 0 Discharge Orders: Discharge Order (Routine); Ordered 05/11/19 Ordered By: Shivam Suresh/Other Patient Handouts: Anemia Admission Data Admit Date/Time: 05/09/19 14:57 Attending Provider: Jerson Morales Admit Provider: Reginald Garcia Primary Care Provider: Nitesh Bazzi Other Providers: Reginald Garcia ; Bret Rothman Other Interventions: Discharge Summary Assessment (RN) Last Done: 05/11/19 14:31 DC Date/Time DO NOT enter until pt leaves facility: 05/11/19 15:10 Coding Level of Care Code D/C Day Management <30 mins Diagnoses Upper gastrointestinal bleed K92.2 Hematemesis K92.0 Nausea presence: unspecified Crohn's disease K50.919 Digestive disease complication type: unspecified complication Gastrointestinal tract location: unspecified location Right-sided chest pain R07.9
== END 2019-05-11 15:10 | disposition home or self-care (01) | DRG 381 ==
LOC: ED 13:15 → SUATTDRO 14:57 → 2S 14:57 → 2N 05-10 15:00